=== PATIENT | female | born 2000 | race African-American/Black ===

== ENCOUNTER 2021-06-12 08:01 | Emergency (ER) | payer BC, SELFPAY ==
[~2021-06-12] VITALS: Ht 167.6 cm; Wt 81.6 kg
[2021-06-12 08:06] VITALS: BP_SYST 142
--- NOTE | 2021-06-12 08:06 | NUR ---
Pt. bib mom with c/o HAMM since 4am accompained by nausea, pt. states had this occur a couple of years ago and was related from stress.
--- NOTE | 2021-06-12 08:19 | NUR ---
Patient to ER bed 8 to gown for evaluation. Side rails up. Assumed care.
--- NOTE | 2021-06-12 08:25 | NUR ---
pt. unable to void, pt. declines , identifies as male going through process of gender change
[2021-06-12] MEDS ORDERED: METOCLOPRAMIDE HCL 10 MG/2 ML VIAL IVP ONE (08:45)
[2021-06-12] MEDS ORDERED: DIPHENHYDRAMINE INJ 50 MG/ML VIAL IVP ONE (08:45)
--- NOTE | 2021-06-12 09:01 | NUR ---
Patient transported to radiology via wheelchair, accompanied by staff.
--- NOTE | 2021-06-12 09:12 | NUR ---
pt. states HAMM resolved post medication
[2021-06-12 09:53] LABS: BASOPHILS % (AUTO) 0.8 % (0.0-2.0); EOSINOPHILS % (AUTO) 0.6 % (0.0-4.0); HEMATOCRIT 43.6 % (36-48); HEMOGLOBIN 14.2 g/dL (12.0-16.0); LYMPHOCYTES # (AUTO) 0.8 K/uL (1.0-5.5); LYMPHOCYTES % (AUTO) 21.7 % (20.5-51.5); MEAN CORPUSCULAR HEMOGLOBIN 28 pg (27-31); MEAN CORPUSCULAR HGB CONC 33 % (32-36); MEAN CORPUSCULAR VOLUME 86 fL (79.0-98.0); MONOCYTES # (AUTO) 0.2 K/uL (0.0-1.0); NEUTROPHILS # (AUTO) 2.8 K/uL (1.8-7.7); NEUTROPHILS % (AUTO) 70.9 % (40.0-70.0); PLATELET COUNT (AUTO) 210 K/uL (130-430); RED BLOOD CELL COUNT(AUTO) 5.05 MIL/uL (4.2-6.2); RED CELL DISTRIBUTION WIDTH 14.3 % (9.0-15.0); WHITE BLOOD COUNT (AUTO) 3.9 K/uL (4.8-10.8)
[2021-06-12 09:59] LABS: ANION GAP 10 (5-15); CALCIUM 8.9 mg/dL (8.4-11.0); CHLORIDE 104 mmol/L (98-107); CREATININE 1.05 mg/dL (0.55-1.30); GLUCOSE 93 mg/dL (70-99); POTASSIUM 4.2 mmol/L (3.5-5.1); SODIUM SERUM 140 mmol/L (136-145); UREA NITROGEN, BLOOD 15 mg/dL (8-21)
[2021-06-12 10:04] LABS: ALBUMIN 3.7 g/dL (3.4-4.8); ASPARTATE AMINOTRANSFERASE 36 U/L (10-37); TOTAL BILIRUBIN 0.4 mg/dL (0.0-1.0)
[2021-06-12 10:08] LABS: C-REACTIVE PROTEIN QUANT < 0.2 mg/dL (0-0.5); GFR AFRICAN AMERICAN 84 mL/min (>90)
[2021-06-12 10:29] LABS: ALANINE AMINOTRANSFERASE 35 U/L (12-78)
[2021-06-12 11:17] VITALS: BP_SYST 129
--- NOTE | 2021-06-12 11:18 | NUR ---
Patient given written and verbal discharge instructions and verbalizes understanding. ER Dr. Vasquez discussed with patient the results and treatment provided. Patient in stable condition. ID arm band removed. IV catheter removed intact. Rx of Conner and Motrin given. Patient educated on pain management and to follow up with PMD. Pain Scale 1. Opportunity for questions provided and answered. Medication side effect fact sheet provided.
[2021-06-12 14:12] LABS: ERYTHROCYTE SEDIMENTATION RATE 6 MM/HR (0-20)
== END 2021-06-12 11:18 | disposition home or self-care (01) ==
LOC: SED 08:01
DX: R51.9 Headache, unspecified (principal)
CPT/HCPCS: 36415; 70450; 76376; 80053; 85025; 85651; 86140; 96374; 96375; 99284; J1200; J2765